=== PATIENT | male | born 1955 | race Native Hawaiian/Other Pacific Islander ===

== ENCOUNTER 2020-03-31 11:57 | Day surgery (SDC) | payer MEDICARE, OTHER ==
[2020-03-31] VITALS (10 sets, daily range): BP systolic 111–150; BP diastolic 66–96; PULSE 54–100; TEMP 97–98.1
[~2020-03-31] VITALS: Ht 167.6 cm; Wt 81.8 kg
--- NOTE | 2020-03-31 13:30 | NUR ---
Assisted up to the bathroom and IV fluids infusing. Awaits surgery.
--- NOTE | 2020-03-31 15:00 | NUR ---
Resting and awaits surgery. Informed that Dr. Berrios will be here approximately 1630. Offered warm blankets. Resting quietly.
--- NOTE | 2020-03-31 19:00 | NUR ---
To room 325 via bed from PACU. Post op vitals initiated. CBI running at a moderate rate-light pink output. Denies nausea/shortness of breath. States he has a burning sensation in his urethra but its tolerable. Plan of care discussed for this shift. Denies questions/concerns. Call light in reach. Will monitor.
[2020-04-01 00:51] VITALS: BP 111/66; PULSE 65; TEMP 98
[2020-04-01 04:19] VITALS: BP 105/65; PULSE 65; TEMP 98.7
--- NOTE | 2020-04-01 06:39 | NUR ---
CBI continued through night at a slow rate-output remained light pink in color/occasional small clot. Tolerating PO. INTd. Denies pain/shortness of breath/nausea. Call light in reach. Will monitor.
--- NOTE | 2020-04-01 07:00 | NUR ---
CBI turned off at this time. Urine clear benjamin, adequate amounts.
--- NOTE | 2020-04-01 07:15 | NUR ---
Dr Berrios here to see patient.
[2020-04-01 07:29] VITALS: BP 111/64; PULSE 68; TEMP 98.7
--- NOTE | 2020-04-01 08:57 | NUR ---
Marques catheter prime and pull completed at this time.
--- NOTE | 2020-04-01 11:03 | NUR ---
Discharge instructions reviewed with patient and spouse, verbalized understanding. Discharged via wheelchair to auto/home with family at 1104. Six bottle routine completed prior to admission. Urine amount adequate, color progressively automotive mechanic, no clots noted.
== END 2020-04-01 11:04 | disposition home or self-care (01) ==
LOC: SDCO 11:57 → SURG 19:00 → SDCO 04-01 11:04
DX: C67.1 Malignant neoplasm of dome of bladder (principal); Z79.899 Other long term (current) drug therapy; Z88.8 Allergy status to other drugs, medicaments and biological substances
CPT/HCPCS: OP; J0690; J1100; J2405; J2704; J3010; J3480; J7120

== ENCOUNTER 2020-08-06 11:00 | Day surgery (SDC) | payer MEDICARE, OTHER ==
[2020-08-06] VITALS (12 sets, daily range): BP systolic 98–140; BP diastolic 54–88; PULSE 66–87; TEMP 97.4–98.7
[~2020-08-06] VITALS: Ht 167.6 cm; Wt 79.5 kg
[~2020-08-06 11:00] MED LIST: DETROL LA4 PO
--- NOTE | 2020-08-06 17:11 | NUR ---
Patient to room 327 from procedure. A&Ox3. VSS. IV CDI. CBI to gravity, urine pink color, clear. at the bedside. Denies pain and discomfort. Marques to traction. No further needs expressed from the patient. Call light within reach
--- NOTE | 2020-08-06 18:14 | NUR ---
Patient resting in bed, A&Ox3. VSS, post op VS monitored. IV CDI, fluids by gravity. CBI infusing, urine pink and clear. Marques to traction. Patient reporting pain in penis, pain medication given as requested. No further needs expressed from the patient. Call light within reach. Will continue to monitor
--- NOTE | 2020-08-06 18:35 | NUR ---
CBI dark red, nurse verified with SARA Senior. CBI wide open. Will continue to monitor. Call light within reach
--- NOTE | 2020-08-06 19:19 | NUR ---
10 ML INSTILLED INTO THE CATHETER BALLOON AND MORE TRACTION APPLIED TO THE CATHETER AND FOAM TAPE USED ON THIGH. PATIENT TOLERATED WELL. CALL LIGHT WITHIN REACH
--- NOTE | 2020-08-06 20:15 | NUR ---
PT CONTINUES TO HAVE DARK RED OUTPUT FROM JONES EVEN WITH CBI WIDE OPEN. IS NOT HAVING ANY LEAKAGE AROUND CATHETER, REPORTS BLADDER SPASMS. IV TO RT FOREARM WITH IVF PER GRAVITY FLOW. DRINKING FLUIDS WELL.
--- NOTE | 2020-08-06 20:34 | NUR ---
PT GIVEN B&O SUPPOSITORY AT THIS TIME. DR ARANGO IS COMING IN TO IRRIGATE PTS CATHETER.
--- NOTE | 2020-08-06 20:50 | NUR ---
DR ARANGO HERE. HAND IRRIGATES CATHETER, NO CLOTS RETURNED. MOVED CATHETER TO LEFT LEG AND APPLIED TRACTION SECURING WITH FOAM TAPE. CBI CONTINUES WIDE OPEN. PT TOLERATED IRRIGATION FAIR.
--- NOTE | 2020-08-06 21:07 | NUR ---
MEDICATED WITH MORPHINE 2MG IVP FOR PAIN IN BLADDER 03/17. IVF DC'D.
--- NOTE | 2020-08-06 22:18 | NUR ---
CONTINUES TO COMPLAIN OF BLADDER SPASMS, MEDICATED WITH LEVSIN SL AT THIS TIME. URINE IS REVENUE FIELD AGENT RED AT THIS TIME.
--- NOTE | 2020-08-07 | NUR ---
PT REPORTS DECREASE IN SPASMS. DENIES NEEDS AT THIS TIME. CBI AT MODERATE RATE, URINE IS WATERMELON COLOR.
--- NOTE | 2020-08-07 02:08 | NUR ---
MEDICATED WITH LEVSIN SL AT THIS TIME. URINE IS STOCKKEEPER WATERMELON AT THIS TIME.
--- NOTE | 2020-08-07 02:10 | NUR ---
NORPHINE 2MG IVP GIVEN FOR PAIN TO BLADDER 02/14.
--- NOTE | 2020-08-07 04:15 | NUR ---
PT REPORTS BLADDER SPASMS, DOES NOT WANT B&O SUPPOS. URINE IS LIGHT WATERMELON COLOR.
[2020-08-07 04:17] VITALS: BP 122/89; PULSE 84; TEMP 98.1
[2020-08-07 06:12] LABS: HEMATOCRIT 37.4 % (42.0-52.0); HEMOGLOBIN 12.8 g/dl (13.5-18.0); MEAN CELL VOLUME 91 fl (80.0-100.0); MEAN CORPUSCULAR HEMOGLOBIN 31 pg (27.0-31.0); MEAN CORPUSCULAR HGB CONC 34 g/dl (33.0-37.0); MEAN PLATELET VOLUME 9.3 fl (7.4-10.4); PLATELET COUNT 280 K/mm3 (130-400); RED BLOOD COUNT 4.11 M/mm3 (4.20-5.60); REDCELL DISTRIBUTION WIDTH-CV 11.6 % (11.5-14.5)
[2020-08-07 06:18] LABS: CALCIUM 8.5 mg/dL (8.4-10.2); CREATININE, serum 1.57 (0.66-1.25); POTASSIUM 4.3 mmol/L (3.4-5.0)
[2020-08-07 07:29] VITALS: BP 120/75; PULSE 77; TEMP 98.3
--- NOTE | 2020-08-07 10:00 | NUR ---
Patient alert and oriented, answers questions appropriately. See assessment. Pina catheter patent and draining dark red urine, no clots noted. CBI infusing into pina catheter at moderate rate. Pina catheter care completed. Education provided about pina/cbi. No c/o at this time.
--- NOTE | 2020-08-07 10:30 | NUR ---
Dr Persaud here to see patient.
[2020-08-07 10:50] VITALS: BP 115/74; PULSE 71; TEMP 97.9
--- NOTE | 2020-08-07 12:57 | NUR ---
Plan: Return home with Khalida . Assess: Met with patient and in room. Patient gave permission to talk in front of about care. Patient reports that his PCP is Dr. Garsia. Patient report RX is [facility]. Patient reports that his step son Fernando Baca is emr contact. No DPOA assigned. Patient reports that he does not have any dme supports. Patient dnies having any care concerns and has a positive report for staff. Patient denies having any difficulty geeting his medications. Action: no identified needs for this patient, will continue to follow.
[2020-08-07 16:15] VITALS: BP 113/71; PULSE 68; TEMP 98.6
[2020-08-07 19:52] VITALS: BP 112/69; PULSE 62; TEMP 98.2
--- NOTE | 2020-08-07 20:53 | NUR ---
PT IN BED. HAS CBI INFUSING AT MODERATE RATE WITH RETURN OF PINK URINE IN JONES CATHETER. STILL COMPLAINS OF BLADDER SPASMS, LEVSIN GIVEN SL AT THIS TIME WELL NORCO 5/325MG PO FOR PAIN. HAS SL TO RT FOREARM, NO REDNESS OR SWELLING. CATHETER WITH FOAM TAPE TRACTION. WANTS TO SLEEP.
--- NOTE | 2020-08-08 00:33 | NUR ---
RESTING IN BED. CBI CONTINUES WITH PINK URINE IN TUBING.
[2020-08-08 04:07] VITALS: BP 122/68; PULSE 58; TEMP 97.9
--- NOTE | 2020-08-08 04:12 | NUR ---
PT IS AWAKE, ASKING FOR NORCO AND LEVSIN. MEDICATED AT THIS TIME. CBI AT MODERATE RATE, URINE WITH PINK/YELLOW IN TUBING.
[2020-08-08 08:19] VITALS: BP 111/57; PULSE 76; TEMP 98.2
--- NOTE | 2020-08-08 08:27 | NUR ---
Marques taken off of traction at this time. CBI decreased to slow rate.
--- NOTE | 2020-08-08 08:30 | NUR ---
Patient alert and oriented, answers questions appropriately. See assessment. Pina catheter in place and patent, draining clear dark red urine. CBI infusing at slow rate. Patient asking about having pina catheter removed and starting six bottle routine so he can go home. Explained to patient that Dr Persaud will be in to see patient and he will be the one deciding on discharge. Patient request dr kellogg called so he can go home.
--- NOTE | 2020-08-08 09:30 | NUR ---
Bladder primed with 200ml CBI fluid, pina catheter removed. Six bottle routine initiated.
[2020-08-08 11:44] VITALS: BP 104/62; PULSE 74; TEMP 98
--- NOTE | 2020-08-08 12:00 | NUR ---
Patient requesting to go home at this time. Patient has only urinated 2/6 for six bottle routine. Urine is bloody with clots. Explained to patient that he needs to urinate a few more times so we can continue to monitor urine. Patient request dr be called so he can discharge.
--- NOTE | 2020-08-08 14:00 | NUR ---
Patient becoming more irate awaiting to urinate to be discharged. Has urinated one more time, urine continues to be bloody with clots. Patient has stood in room doorway hollering at staff to come to room because he wants to discharge.
--- NOTE | 2020-08-08 15:30 | NUR ---
Discharge instructions reviewed with patient and spouse, verbalized understanding. Discharged via wheelchair to auto/home with spouse at 1530.
== END 2020-08-08 15:30 | disposition home or self-care (01) ==
LOC: SDCO 11:00 → JCC 17:09 → SDCO 08-08 15:30
PROVIDERS: Urology
DX: C67.5 Malignant neoplasm of bladder neck (principal); C67.1 Malignant neoplasm of dome of bladder; C67.6 Malignant neoplasm of ureteric orifice; E11.9 Type 2 diabetes mellitus without complications; I10 Essential (primary) hypertension; E78.2 Mixed hyperlipidemia; Z20.828 Contact with and (suspected) exposure to other viral communicable diseases; Z80.0 Family history of malignant neoplasm of digestive organs
CPT/HCPCS: OP; J0690; J1100; J2270; J2405; J2704; J3010; J7030; Q9967

== ENCOUNTER 2020-10-06 11:26 | Inpatient (IN) | payer MEDICARE, OTHER ==
[~2020-10-06] VITALS: Ht 165.1 cm; Wt 79.8 kg
[2020-10-19] VITALS (11 sets, daily range): BP systolic 97–141; BP diastolic 59–87; PULSE 72–106; TEMP 97–98.3
[2020-10-19] MEDS ORDERED: AZO URINARY PAI95 MG PO (05:57)
[2020-10-19 06:21] LABS: BASO # 0.1 (0.0-0.2); BASO % 1.1 % (0.0-2.0); EOS # 0.1 (0.0-0.7); EOS % 2.1 % (0-4.0); GRAN # 3.6 (1.4-6.5); GRAN % 57.2 % (42.2-75.2); HEMATOCRIT 42.1 % (42.0-52.0); HEMOGLOBIN 13.9 g/dl (13.5-18.0); LYMPH % 32.2 % (20.0-51.0); MEAN CELL VOLUME 85 fl (80.0-100.0); MEAN CORPUSCULAR HEMOGLOBIN 28 pg (27.0-31.0); MEAN CORPUSCULAR HGB CONC 33 g/dl (33.0-37.0); MONO # 0.5 (0.1-0.6); MONO % 7.1 % (1.7-9.3); PLATELET COUNT 342 K/mm3 (130-400); RED BLOOD COUNT 4.98 M/mm3 (4.20-5.60); REDCELL DISTRIBUTION WIDTH-CV 13.2 % (11.5-14.5)
[2020-10-19 06:33] LABS: CALCIUM 9.6 mg/dL (8.4-10.2); CREATININE, serum 1.03 (0.66-1.25); POTASSIUM 4.1 mmol/L (3.4-5.0)
[2020-10-19 12:16] LABS: HEMATOCRIT 20.5 % (42.0-52.0); HEMOGLOBIN 6.6 g/dl (13.5-18.0)
--- NOTE | 2020-10-19 14:30 | NUR ---
PATIENT ADMITED INTO ROOM 349 POST OP. PATIENT IS VERY DROWSY. PACU REPORTED SECOND BLOOD TRANSFUSION COMPLETE ON TRANSFER. POST OP HGB WAS 6.6. NOTED SOFT B/P OF 105/70, ALL OTHER VSS. PACU ALSO REPORTED PATIENT HAD PAIN AND WAS GIVEN DILAUDID. PATIENT NOW COMFORTABLE AND SLEEPING. JONES TO DD WITH SCANT AMOUNTS OF FABRIZIO URINE NOTED. URETERAL STENTS X2 AND PROSPER-BLADDER DRAIN COVERED WITH OSTOMY AND TO DD. TAHMINA DRAIN TO RIGHT ABD WITH NO BLOODY DRAINAGE NOTED. IV FLUIDS INFUSING INTO LEFT FORARM VIA PUMP. RIGHT FORARM IV TO INT. HEAD TO TOE ASSSESSMENT COMPLETE. CALL LIGHT IN REACH.
--- NOTE | 2020-10-19 16:30 | NUR ---
SMALL AMOUNTS OF BLOOD TINGED URINE NOTED FROM INDWELLING JONES AND ABD URETER/NEOBLADDER DRAINS.
[2020-10-19 16:36] LABS: BASO % 0.1 % (0.0-2.0); GRAN # 15.4 (1.4-6.5); LYMPH # 0.6 (1.2-3.4); LYMPH % 3.6 % (20.0-51.0); MEAN CELL VOLUME 87 fl (80.0-100.0); MEAN CORPUSCULAR HGB CONC 34 g/dl (33.0-37.0); MONO # 1.4 (0.1-0.6); RED BLOOD COUNT 3.48 M/mm3 (4.20-5.60); REDCELL DISTRIBUTION WIDTH-CV 13.5 % (11.5-14.5)
[2020-10-19 16:37] LABS: HEMATOCRIT 30.1 % (42.0-52.0); HEMOGLOBIN 10.1 g/dl (13.5-18.0); MEAN CORPUSCULAR HEMOGLOBIN 29 pg (27.0-31.0); PLATELET COUNT 178 K/mm3 (130-400)
[2020-10-19 16:43] LABS: CALCIUM 6.8 mg/dL (8.4-10.2); CREATININE, serum 1.54 (0.66-1.25); POTASSIUM 4.5 mmol/L (3.4-5.0)
--- NOTE | 2020-10-19 16:55 | NUR ---
STARTED 500CC FLUID BOLUS PER UROLOGY.
--- NOTE | 2020-10-19 18:10 | NUR ---
PATIENT HAD 120CC OF BLOODY URINE FROM INDWELLING JONES AND 20CC OF BLOODY URINE FROM NEOBLADDER JONES.
--- NOTE | 2020-10-19 21:24 | NUR ---
Pt is currently lying in bed. Pt did have some pain earlier and he was given something for pain. Pt stated that currently his pain is much better. He has pink tinged urine from his pina and bloody from his jud drain. His midline dressing is clean dry and intact. Pt has been tolerating sips and chips well. Pt has his call light within reach and is currently talking with his on the phone.
[2020-10-20 08:00] VITALS: BP 111/58; PULSE 91; TEMP 98.4
[2020-10-20 12:30] VITALS: BP 99/56; PULSE 87; TEMP 98.1
[2020-10-20 13:01] LABS: HEMATOCRIT 29.9 % (42.0-52.0); MEAN CELL VOLUME 87 fl (80.0-100.0); MEAN CORPUSCULAR HEMOGLOBIN 29 pg (27.0-31.0); MEAN CORPUSCULAR HGB CONC 33 g/dl (33.0-37.0); MEAN PLATELET VOLUME 9.9 fl (7.4-10.4); PLATELET COUNT 213 K/mm3 (130-400); RED BLOOD COUNT 3.45 M/mm3 (4.20-5.60); REDCELL DISTRIBUTION WIDTH-CV 14.2 % (11.5-14.5)
[2020-10-20 13:10] LABS: BAND 3 % (0-10); LYMPHOCYTE 15 % (20.0-51.0); NEUTROPHILS 73 % (42.0-75.2); PLATELET ESTIMATE NORMAL (NORMAL)
--- NOTE | 2020-10-20 15:08 | NUR ---
SW met with the patient to discuss discharge plan. The patient lives in [place] with his , Khalida (ph#[phone]). He reports independence with ADLs and has a cane. The patient's PCP is Dr. Kirk Garsia and he receives his medications from [facility]. He reports no difficulties obtaining his meds. The patient does not have a DPOA_HC and he was not interested in completing one at this time. The patient plans to return home with his upon discharge. SW to follow as needed.
[2020-10-20 16:05] VITALS: BP 114/70; PULSE 85; TEMP 97.7
--- NOTE | 2020-10-20 19:20 | NUR ---
Patient has done very well today. Patient blood pressures improved. Ivf continue to Rac per orders. He has tolerated sips of clears, denies nasuea. He has denies flatus, abdomen soft. He was up in the chair most of the afternoon & ambulated the halls x2. Scds ble. Marques has had adequate output, suprapubic with minimal output drainage. Erlin drain to bulb suction. given update on patient and orders obtained. Jay to resume cares
--- NOTE | 2020-10-20 20:35 | NUR ---
Pt. laying in bed at this time. Pt. is A&OX3, assessment complete. INT to rt. forearm patent. IV to lt. forearm with iv fluids infusing per orders. Midline incision, dressing CDI. ELENI drain with bloody drainage noted. Suprapubic with red tinged urine noted. Marques catheter to DD, with red tinged urine noted. Pt. denies pain or other needs, call light within reach.
[2020-10-20 20:53] VITALS: BP 109/61; PULSE 76; TEMP 98
[2020-10-20 23:50] VITALS: BP 107/65; PULSE 80; TEMP 98.6
[2020-10-21 04:13] VITALS: BP 118/64; PULSE 76; TEMP 98.3
[2020-10-21 07:01] VITALS: BP 105/67; PULSE 76; TEMP 97.8
[2020-10-21 07:25] LABS: BASO % 0.2 % (0.0-2.0); EOS % 0.2 % (0-4.0); GRAN # 12.3 (1.4-6.5); GRAN % 77.1 % (42.2-75.2); LYMPH % 12.7 % (20.0-51.0); MEAN CELL VOLUME 89 fl (80.0-100.0); MEAN CORPUSCULAR HGB CONC 33 g/dl (33.0-37.0); MEAN PLATELET VOLUME 9.7 fl (7.4-10.4); MONO # 1.5 (0.1-0.6); MONO % 9.1 % (1.7-9.3); PLATELET COUNT 198 K/mm3 (130-400); RED BLOOD COUNT 2.63 M/mm3 (4.20-5.60); REDCELL DISTRIBUTION WIDTH-CV 14.5 % (11.5-14.5)
--- NOTE | 2020-10-21 07:37 | NUR ---
Lying in bed with eyes open texting on cell phone and eating breakfast. Alert and oriented x4. Rates pain to abd 3/10 at this time. Mid abd incision with dressing CDI. Suprapubic catheter to dependent drainage with small amount of clear yellow drainage in fofley bag. Marques catheter to dependent drainage with peach color urine noted in bag. Patient would like to get up and ambulate after breakfast. Denies additional needs.
[2020-10-21 07:53] LABS: CALCIUM 7.7 mg/dL (8.4-10.2); CREATININE, serum 1.32 (0.66-1.25); POTASSIUM 4.3 mmol/L (3.4-5.0)
[2020-10-21 07:55] LABS: HEMATOCRIT 23.3 % (42.0-52.0); HEMOGLOBIN 7.7 g/dl (13.5-18.0); MEAN CORPUSCULAR HEMOGLOBIN 29 pg (27.0-31.0)
--- NOTE | 2020-10-21 08:20 | NUR ---
Patient ambulating in halls with standby assist of ANAHY Soto.
--- NOTE | 2020-10-21 08:32 | NUR ---
Patient sitting up in chair, completed sponge bath. JIMENEZ Canseco, in room and demonstrates to the patient how to flush pina and suprapubic catheter. Patient has some nausea. Will administer Zofran as prescribed. Patient remains in chair. Denies additional needs.
--- NOTE | 2020-10-21 09:52 | NUR ---
Initial visit; Patient appeared glad to talk with someone and spoke of his illness, what he has gone through and his ray in God. Patient thanked Cognos Architect for visit and prayer.
[2020-10-21 11:09] VITALS: BP 122/65; PULSE 76; TEMP 98.3
--- NOTE | 2020-10-21 11:22 | NUR ---
Patient sitting up in recliner. Rates pain in abd 10, describes as "feels like a hole" and stabbing with certain movements. Administered scheduled Tylenol. Patient says that after lunch he wants to get up and walk and then he would like to get in bed for a little while. Denies additional needs at this time.
--- NOTE | 2020-10-21 13:10 | NUR ---
Patient ambulates with standby assist of one to nurses station then back to room. Patient uses IV pole as cane as he felt more comfortable doing this. Gait slow and steady. Returns to room and gets in bed. Assisted to comfortable position. Patient denies additional needs at this time.
[2020-10-21 16:17] VITALS: BP 115/64; PULSE 80; TEMP 99.4
--- NOTE | 2020-10-21 16:27 | NUR ---
Rating pain 4/10 in abd, would like pain medication so that his pain does not increase significantly when he does get out of bed. Administer pain medication as prescribed. Denies additional needs at this time.
--- NOTE | 2020-10-21 17:57 | NUR ---
Patient ambulating in halls with Brittany, DOMESTIC FREIGHT FORWARDER. Gait slow and steady. Denies pain or additional needs at this time.
[2020-10-21 20:17] VITALS: BP 113/68; PULSE 82; TEMP 98.3
--- NOTE | 2020-10-21 21:00 | NUR ---
Pt. sitting up in bed at this time. Pt. is A&OX3, assessment complete. INT's to bilateral forearms patent. Midline incision with gauze, CDI. ELENI drain with serosanguineous drainage noted. Suprapubic catheter with stents to ostomy bag and Marques catheter to DD with peach colored urine noted. Marques and suprapubic catheters irrigated per orders. Pt. reports pain at a 4 on pain scale, gave pain meds per orders. Pt. denies further needs, call light within reach.
[2020-10-21 23:53] VITALS: BP 117/63; PULSE 78; TEMP 99.3
[2020-10-22] VITALS (11 sets, daily range): BP systolic 103–128; BP diastolic 52–78; PULSE 74–87; TEMP 98–100.9
[2020-10-22 07:03] LABS: HEMATOCRIT 22.6 % (42.0-52.0); HEMOGLOBIN 7.4 g/dl (13.5-18.0)
--- NOTE | 2020-10-22 07:20 | NUR ---
rounded. This nurse at bedside. He flushed pina & supra pubic. THis nurse will begin teaching process with patient. Patient very aware of plan of care and ask appropriate questions.
--- NOTE | 2020-10-22 10:32 | NUR ---
Follow-up visit; Jordy states he is doing much better and thanked Community Director for offering God's blessings and keeping him in her prayers.
[2020-10-22] MEDS ORDERED: COLACE 100100 MG/CAP PO (10:38)
[2020-10-22] MEDS ORDERED: CEPHALEXIN250 M1 PO (10:39)
[2020-10-22] MEDS ORDERED: NORCO 325 MG-51 TAB PO (10:39)
--- NOTE | 2020-10-22 10:48 | NUR ---
Patient resting in bed. Unit of blood started per orders and protocol. Patient tolerating. This nurse at bedside. We reviewed signs & symptoms of transfusion reaction.
--- NOTE | 2020-10-22 19:24 | NUR ---
Patient resting in bed. Update given to this evening he is aware of patient low grade temps today. Patient tolerated blood transfusion. Vss. Urine output adequate. Patient given extensive pina & supra pubic cath teaching. He did very well. He has ambulated the [facility] time today. Midline incison jose intact. Patient did have a BM today. Pain manged per eras. eras protcol followed. He is hopeful for discharge home tmrw. bedside report to theresa maldonado
[2020-10-23 00:52] VITALS: BP 121/73; PULSE 68; TEMP 98.5
--- NOTE | 2020-10-23 01:35 | NUR ---
Pt currenty resting in bed. Pt was able to irrigate both the catheter and superpubic. Pt did very will with little reminders. Pt was able to pull back from the pina but was not able to pull back from the superpubic. Pt has no complaints of pain and pt has his call light within reach and his bed is in lowest position.
[2020-10-23 04:35] VITALS: BP 113/68; PULSE 66; TEMP 98.7
--- NOTE | 2020-10-23 06:16 | NUR ---
Pt resting in bed watching a movie on his phone. He has his call light within reach. His lab was drawn from his ELENI drain this morning.
[2020-10-23 06:29] LABS: BASO % 0.4 % (0.0-2.0); EOS # 0.3 (0.0-0.7); EOS % 3.1 % (0-4.0); GRAN # 7.7 (1.4-6.5); GRAN % 71.9 % (42.2-75.2); LYMPH # 1.6 (1.2-3.4); LYMPH % 14.9 % (20.0-51.0); MEAN CELL VOLUME 90 fl (80.0-100.0); MEAN CORPUSCULAR HGB CONC 33 g/dl (33.0-37.0); MEAN PLATELET VOLUME 9.4 fl (7.4-10.4); PLATELET COUNT 264 K/mm3 (130-400); REDCELL DISTRIBUTION WIDTH-CV 14.7 % (11.5-14.5)
[2020-10-23 06:44] LABS: CALCIUM 8.3 mg/dL (8.4-10.2); CREATININE, serum 0.99 (0.66-1.25)
[2020-10-23 06:47] LABS: HEMATOCRIT 28.8 % (42.0-52.0); HEMOGLOBIN 9.5 g/dl (13.5-18.0); MEAN CORPUSCULAR HEMOGLOBIN 30 pg (27.0-31.0)
--- NOTE | 2020-10-23 07:12 | NUR ---
Pt is currently sitting up in bed. Pt was assisted this morning with putting his leg bags back in place. Pt was able to irrigate his superpubic and pina this morning. He was no all to pull back anything from his superpubic. Pt stated that he has no other concerns at this time. Reported off to SARA Otero.
--- NOTE | 2020-10-23 07:30 | NUR ---
SARA ARAUJO AND THIS NURSE ASSISTED AND WATCHED PATIENT FLUSH AND IRRIGATE HIS SUPRAPUBIC CATHETER AND JONES CATHETER DURING SHIFT REPORT PER ORDERS.
[2020-10-23 07:58] VITALS: BP 127/73; PULSE 68; TEMP 98.8
--- NOTE | 2020-10-23 08:42 | NUR ---
PATIENT SHIFT ASSESSMENT COMPLETE AND AM MEDICATIONS ADMINISTERED AT THIS TIME. PATIENT HAS BEEN UP AMBULATING IN THE HALLWAYS INDEPENDENTLY THIS MORNING. JONES CATHETER AND SUPRAPUBIC CATHETER PLACED TO LEGS BAGS AFTER FLUSHING AND IRRIGATING WITH NIGHT NURSE. PATIENT REPORTS THAT HIS PAIN IS WELL CONTROLLED WITH THE SCHEDULED TYLENOL. PATIENT DENIES ANY NEEDS AT THIS TIME.
[2020-10-23 11:12] VITALS: BP 120/74; PULSE 74; TEMP 97.8
--- NOTE | 2020-10-23 13:10 | NUR ---
ELENI DRAIN DISCONTINUED PER ORDERS. PATIENT TOLERATED WELL. GAUZE & TEGADERM APPLIED OVER ELENI DRAIN SITE. PATIENT CYLINDERS IN BATHROOM EMPTIED. PATIENT REPORTS THAT HE WAS UNABLE TO FIND THE SECOND CYLINDER TO EMPTY HIS LEG BAGS SEPERATELY. PATIENT UNSURE HOW MUCH WAS EMPTIED FROM THE SUPRAPUBIC BAG VS THE JONES CATHETER BAG. OUTPUT DOCUMENTED UNDER JONES CATHETER AT THIS TIME. PATIENT CYLINDERS LOCATED IN BATHROOM AND LABELED WITH #1 & #2 FOR PATIENT. PATIENT CURRENTLY RESTING IN BED WITH CALL LIGHT IN REACH. PATIENT DENIES ANY OTHER NEEDS AT THIS TIME.
--- NOTE | 2020-10-23 16:12 | NUR ---
ISA (Starr) was notified of patient's desire for a walker. ISA spoke with patient's RN concerning the need for PT/OT evaluation for need as well as a filled out DME order that was signed by physician or mid-level. RN confirmed understanding and is reaching out to the doctor for orders. SW spoke to patient to make him aware of steps being taken to assist him. ISA will continue to follow.
--- NOTE | 2020-10-23 18:00 | NUR ---
PHYSICAL THERAPY EVALUATE AND TREAT ORDER PLACED FOR PATIENT REQUESTING A WALKER TO DISCHARGE HOME WITH TOMMORROW. NOTIFIED AND ORDER PLACED PER PHYSICIAN REQUEST. PATIENT AWARE THAT THIS MAY DELAY HIS DISCHARGE TOMORROW. PATIENT OKAY AND AGREEABLE TO SEEING PHYSICAL THERAPY TOMORROW TO SEE IF INSURANCE WILL COVER COSTS. PATIENT RESTING IN BED WAITING FOR DINNER TRAY. WILL REPORT OFF TO ONCOMING NURSE.
[2020-10-23 18:18] VITALS: BP 139/76; PULSE 73; TEMP 98.3
--- NOTE | 2020-10-23 19:38 | NUR ---
Pt is currently up and in the restroom. Pt had little assistance with irrigating the pina and the superpubic. He as able to flush and got back equal return from both. There was a lot of mucus out of the pina and we were able to flush the superpubic and get good return. Pt stated that he is a little sore from the pina being removed but other than that he feels fine. Pt did almost everything independently. Pt will call if he needs anything. Cath care will be provided when pt is back to bed.
[2020-10-23 19:47] VITALS: BP 143/79; PULSE 76; TEMP 98.3
[2020-10-24 00:18] VITALS: BP 132/74; PULSE 74; TEMP 98.7
[2020-10-24 04:36] VITALS: BP 117/69; PULSE 71; TEMP 98.7
--- NOTE | 2020-10-24 06:29 | NUR ---
Pt is currently sitting up in bed. Pt superpubic and pina was irrigated at this time. The superpubic did meet resistance this time. Pt stated that he has no pain at this time. The output from the pina did have mucus. Pt has his call light within reach and his bed is in lowest position.
--- NOTE | 2020-10-24 07:05 | NUR ---
Reported off to SARA Junior. Pt has his call light within reach.
[2020-10-24 07:36] VITALS: BP 142/85; PULSE 77; TEMP 98.8
--- NOTE | 2020-10-24 08:43 | NUR ---
PATIENT AM SHIFT ASSESSMENT COMPLETED AND AM MEDICATIONS ADMINISTERED. PATIENT REPORTS THAT HIS PAIN IS WELL MANAGED WITH CURRENT REGIMEN. PATIENT REPORTS WHILE AT REST HIS PAIN IS MINIMAL BUT INCREASES WITH ACTIVITY OR COUGHING. MIDLINE INCISION ASPHALT PAVING SUPERINTENDENT WITH WILLY INTACT AND EDGES WELL APPROXIMATED. OLD ELENI DRAIN SITE DRESSED WITH GAUZE & TEGADERM AND IS CD&I. GAUZE IN PLACE TO SUPRA PUBIC CATHETER AND IS CD&I. PATIENT REPORTS THAT HE FLUSHED THE CATHETERS WITH THE SALES ACTIVITY MANAGER NURSE EARLY THIS MORNING. PATIENT HAS ALREADY COMPLETED HIS OWN HYGIENE. CALL LIGHT WITHIN REACH. PATIENT DENIES ANY OTHER NEEDS AT THIS TIME.
--- NOTE | 2020-10-24 11:24 | NUR ---
SW met with patient to discuss status of walker delivery. Patient does not wish to wait for the walker to be delivered to the hospital. SW checked this with patient's RN, who okayed this plan. ISA sent in referral and contacted [facility]. Delivery is scheduled at patient's home address. Patient denies any other needs at this time.
--- NOTE | 2020-10-24 11:25 | NUR ---
PATIENTS RIGHT AND LEFT FOREARM INT'S DICONTINUED PER PENDING DISCHARGE. TIPS INTACT. PATIENT TOLERATED WELL.
[2020-10-24 11:53] VITALS: BP 103/63; PULSE 88; TEMP 98.8
--- NOTE | 2020-10-24 12:00 | NUR ---
DISCHARGE INSTRUCTIONS REVIEWED WITH PATIENT. QUESTIONS SOUGHT AND ANSWERED. PATIENT PERSONAL BELONGINGS GATHERED. PATIENT AWAITING ARRIVAL FOR DISCHARGE.
--- NOTE | 2020-10-24 12:30 | NUR ---
PATIENT TAKEN TO PERSONAL VEHICLE VIA WHEELCHAIR BY SURGICAL STAFF. PATIENT DISCHARGED.
== END 2020-10-24 12:30 | disposition home or self-care (01) | DRG 654 ==
LOC: INPTSU 10-19 05:24 → SURG 10-19 07:30
PROVIDERS: Physician Assistant Surgical; Registered Nurse; ADMIT Urology
PROC: 0T1807C Bypass Bilateral Ureters to Ileocutaneous with Autologous Tissue Substitute, Open Approach (ICD-10-PCS; 2020-10-19)
PROC: 07TC0ZZ Resection of Pelvis Lymphatic, Open Approach (ICD-10-PCS; 2020-10-19)
PROC: 0TRB07Z Replacement of Bladder with Autologous Tissue Substitute, Open Approach (ICD-10-PCS; principal; 2020-10-19 07:30)
DX: C67.9 Malignant neoplasm of bladder, unspecified (principal); D62 Acute posthemorrhagic anemia; E11.9 Type 2 diabetes mellitus without complications; I10 Essential (primary) hypertension; E78.2 Mixed hyperlipidemia
CPT/HCPCS: A9284; C2617; J0330; J0690; J1170; J1650; J2250; J2270; J2370; J2405; J2704; J3010; J7120; P9016

== ENCOUNTER 2020-11-02 10:37 | Day surgery (SDC) | payer MEDICARE, OTHER ==
[~2020-11-02 10:37] MED LIST changes: +AZO URINARY PAI95 MG PO; +CEPHALEXIN250 M1 PO; +COLACE 100100 MG/CAP PO; +NORCO 325 MG-51 TAB PO
[2020-11-02] MEDS ORDERED: TYLENOL 500MG500 MG PO (11:27)
[2020-11-02 12:05] VITALS: BP 114/67; PULSE 64; TEMP 98.1
--- NOTE | 2020-11-02 13:00 | NUR ---
Patient arrived to floor at 1100. IV started to right forearm. Duran Bar RN and I tried multiple times to get the IV started. Rocephin given as ordered. Dressings to suprapubic has been on since patient discharged. He stated he was not told how to care for the dressing. There was old drainage to the dressing but nothing new. Dressing from discharge was also over ELENI drain site. Removed dressing and cleaned the area. Streri-strips to incision are intact and clean. Denies pain and nausea. Patient is going for his cystogram. No other changes at this time. Admissions assessments completed.
--- NOTE | 2020-11-02 15:20 | NUR ---
Marques catheter removed. Explained the plan for the voiding trial. Patient verbalized understanding. Patient stated he was instructed on how to catherize himself at the office before his procedure. He is alert and oriented and able to do this himself. Patient tolerated the removal of the catheter without issues. Roberta-care provided. No other changes at this time. Call light within reach Urinal and graduate container given to patient.
[2020-11-02 16:00] VITALS: BP 104/58; PULSE 71; TEMP 99.5
--- NOTE | 2020-11-02 18:30 | NUR ---
Patient is not having issues wit voiding. He is having a hard time making it to the urinal before he voids. He said when he goes to stand up that he starts voiding automatically. He is having zero post voids when he drains the suprapubic and has only had 10ml out this last time when he straight cathed himself. Patient denies pain or burning with voiding. No other changes at this time. Call light within reach.
--- NOTE | 2020-11-02 19:45 | NUR ---
Pt. sitting up in bed. Pt. is A&OX3, assessment complete. Suprapubic catheter intact. Pt. straight cathing self without complications. Pt. denies pain or other needs, call light within reach.
[2020-11-02 22:47] VITALS: BP 108/71; PULSE 67; TEMP 98.6
[2020-11-03 00:50] VITALS: BP 111/66; PULSE 68; TEMP 98.7; TEMP 9807
[2020-11-03 04:00] VITALS: BP 116/63; PULSE 73; TEMP 98.4
--- NOTE | 2020-11-03 07:00 | NUR ---
UROLOGY AT BEDSIDE. SUPER PUBIC JONES DC'D PER ORDERS.
[2020-11-03 07:19] VITALS: BP 139/90; PULSE 77; TEMP 96.8
--- NOTE | 2020-11-03 08:00 | NUR ---
PATIENT IS A&O. VSS. PATIENT REQUESTING TYLENOL FOR DISCOMFORT AFTER UROLOGY DC'D SUPER PUBIC JONES, GIVEN. PATIENT HAS HAD MINIMAL RESIDUALS AFTER VOIDING. UROLOGY OKAY WITH DC HOME TODAY. HEAD TO TOE ASSESSMENT COMPLETE. PATIENT SITTING AT BEDSIDE WITH BREAKFAST TRAY. RIGHT FORARM IV TO INT. NO OTHER NEEDS AT THIS TIME. CALL LIGHT IN REACH.
--- NOTE | 2020-11-03 09:00 | NUR ---
PATIENT AMBULATED INDEPENDENTLY TO BATHROOM TO VOID. POST VOID CATH WAS ON 10CC.
--- NOTE | 2020-11-03 10:15 | NUR ---
PATIENT DISCHARGING HOME. GAVE DISCHARGE INSTRUCTIONS, DRESSING SUPPLIES AND UROLOGY OFFICE TO CALL PATIENT FOR F/U APT. PATIENT INSTRUCTED TO VOID Q2H AND SELF CATH Q4H PER . PATIENT HAS CATH SUPPLIES AT HOME. DC'D RIGHT FORARM IV, COVERED SITE WITH GAUZE & COBAN. PATIENT ESCORTED OUT VIA WC WITH PERSONAL BELONGINGS.
== END 2020-11-03 10:15 | disposition home or self-care (01) ==
LOC: SDCO 10:37 → JCC 11:36 → SDCO 13:00 → COL.RAD 13:00 → EDSTATUS 13:00 → SDCO 11-03 10:15
DX: C67.5 Malignant neoplasm of bladder neck (principal); Z98.52 Vasectomy status; Z88.8 Allergy status to other drugs, medicaments and biological substances
CPT/HCPCS: OP; J0696

== ENCOUNTER → 2020-11-19 | Outpatient (CLI) | payer MEDICARE, OTHER ==
[~2020-11-19] MED LIST changes: +MIRALAX119G PO; +TYLENOL 500MG500 MG PO
== END ==
LOC: COL.VAS 13:44
DX: Z51.11 Encounter for antineoplastic chemotherapy (principal); C67.9 Malignant neoplasm of bladder, unspecified

== ENCOUNTER 2020-11-23 11:49 | Day surgery (SDC) | payer MEDICARE, OTHER ==
[~2020-11-23] VITALS: Ht 167.6 cm; Wt 68.2 kg
[~2020-11-23 11:49] MED LIST changes: -MIRALAX119G PO
[2020-11-23 12:21] VITALS: BP 117/73; PULSE 77; TEMP 97.1
[2020-11-23] MEDS ORDERED: MIRALAX119G PO (12:33)
[2020-11-23] MEDS ORDERED: NORCO 325 MG-51 TAB PO (15:13)
[2020-11-23 15:16] VITALS: BP 119/78; PULSE 64; TEMP 96.3
--- NOTE | 2020-11-23 15:16 | NUR ---
TO RM 1 PER CART FROM OR. AROUSES TO NAME AND FALLS BACK TO SLEEP. NO SIGNS OF DISTRESS. DRESSING CLEAN DRY INTACT AND BANDAIDE IS CLEAN DRY INTACT.
[2020-11-23 15:30] VITALS: BP 122/45; PULSE 64
--- NOTE | 2020-11-23 15:30 | NUR ---
MORE AWAKE AND TALKING WITH A SLUR ASKING FOR SOMETHING TO EAT.
[2020-11-23 15:45] VITALS: BP 110/63; PULSE 61
--- NOTE | 2020-11-23 15:45 | NUR ---
RECEIVED SPRITE AND MUFFIN. SITTING UP TALKING WITH . PATIENT HAS MANY QUESTIONS ABOUT WT GAIN AND DIET. I INSTRUCTED HIM TO FOLLOW UP WITH DR CEDEÑO AND GET A DIETARY CONSULT. I EXPAINED WITH CHEMO STARTING HE NEEDS TO MAINTAIN OR GAIN WEIGHT.
--- NOTE | 2020-11-23 16:05 | NUR ---
ATE 100% AND TOLERATED WELL. RECEIVED DISCHARGE INSTRUCTIONS AND VERBALIZED UNDERSTANDING. DISCONTINUED IV AND INT- CATHETER INTACT. PATIENT GETTING DRESSED.
--- NOTE | 2020-11-23 16:34 | NUR ---
DISCHARGED PER WC BY NURSING STAFF TO PRIVATE CAR IN CARE OF MAEVE.
== END 2020-11-23 16:43 | disposition home or self-care (01) ==
LOC: SDCO 11:49
DX: C67.9 Malignant neoplasm of bladder, unspecified (principal); C77.2 Secondary and unspecified malignant neoplasm of intra-abdominal lymph nodes; Z87.891 Personal history of nicotine dependence; Z98.52 Vasectomy status; Z20.822 Contact with and (suspected) exposure to COVID-19
CPT/HCPCS: C1788; J0690; J1644; J2405; J2704; J3010; J7120